=== PATIENT | female | born 1960 | race American Indian/Alaskan Native ===

== ENCOUNTER 2017-02-17 16:02 | Outpatient (CLI) | payer MEDICAID ==
--- NOTE | 2017-02-18 08:36 | Magnetic Resonance Report ---
MRI of the brain with and without contrast. History: Multiple sclerosis. Procedure: Routine brain protocol with and without contrast. Findings: The posterior fossa is normal. The ventricles are normal in size and contour. The torres-white matter junction is normal. There is no restricted diffusion. There are no mass lesions or extra-axial collections. After contrast administration, there is no evidence of abnormal parenchymal enhancement. The pituitary gland is normal. The visualized extracranial structures are unremarkable. Impression: Normal study.
--- NOTE | 2017-02-18 09:02 | Magnetic Resonance Report ---
MRI of the cervical spine without contrast. History: Multiple sclerosis. Procedure: Sagittal T1-weighted, T2-weighted, inversion recovery images, and axial T2 and proton density images were used in the study. Findings: The C2-3 level is unremarkable. At C3-4, there is mild uncovertebral joint hypertrophy, but no spinal stenosis. At C4-5, there is mild central disc protrusion with minimal effacement of the subarachnoid space. There is no spinal stenosis. At C5-6, there is moderate narrowing of the disc space with desiccation of the disc. No significant extradural abnormalities are seen. The C6-7 and C7-T1 levels are unremarkable. The cervical cord is normal in size and configuration with no focal signal abnormalities. Impression: 1. No signal abnormalities are seen within the cervical cord. 2. Mild spondylosis and uncovertebral joint arthropathy as detailed above. No spinal stenosis.
== END 2017-02-17 16:03 | disposition home or self-care (01) ==
LOC: MRI 16:02
PROVIDERS: ATTEND Psychiatry & Neurology Neurology
DX: G35 Multiple sclerosis (principal); M47.892 Other spondylosis, cervical region; M12.88 Other specific arthropathies, not elsewhere classified, other specified site
CPT/HCPCS: 70553; 72141; A9577